=== PATIENT | female | born 1965 | race Caucasian/White ===

== ENCOUNTER 2017-12-28 07:10 | Day surgery (SDC) | payer OTHER ==
--- NOTE | 2017-12-19 16:54 | HP ---
CC: Dr. Mayra Vigil * PREOPERATIVE HISTORY AND PHYSICAL: DATE OF ADMISSION/SURGERY: 12/28/17 This patient is scheduled for same-day surgery admission by Dr. Cloud on Sunday , 12/28/17. DATE OF PREOPERATIVE HISTORY AND PHYSICAL EXAMINATION: 12/19/17. ATTENDING SURGEON: Dr. Brianne Cloud * (dictated by Amina Dodd NP). CHIEF COMPLAINT: Left breast mass. HISTORY OF PRESENT ILLNESS: The patient is a 52-year-old female recently evaluated by Dr. Cloud for abnormal left mammogram. 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 She had not been aware of any breast abnormality and states that she has had mild left breast pain. There is no family history of breast cancer; menarche was at age 10, she is not taking control pills. She has never had a previous breast biopsy and has never had radiation to the chest. Dr. Cloud has examined the patient and there is not a palpable mass of the left breast, so Dr. Cloud explained to the patient that she will need a mammo- guided needle localization excision of the left breast phyllodes tumor. She described the nature of the surgical procedure, the rationale for the procedure, the relevant risks and benefits, and today I reviewed the expected postoperative care and recovery and also provided written instructions for her case packer. The patient has had a chance to ask questions, her case packer has had a chance to ask questions. They state that they understand the information and are satisfied with the answers given to their questions. The patient will sign surgical consent on the day of surgery. PAST MEDICAL HISTORY: Significant for chronic paranoid schizophrenia with multiple prior psychiatric admissions; asthma; obesity; sleep apnea; and anemia. PAST SURGICAL HISTORY: None. MEDICATIONS: 1. Lipitor 10 mg p.o. daily at bedtime. 2. ProAir inhaler 1 puff every 6 hours as needed. 3. Advair 2 puffs b.i.d. 4. QVAR 2 puffs b.i.d. 5. Bisacodyl 5 mg p.o. daily p.r.n. constipation. 6. Benztropine 0.5 mg 1 tablet at bedtime. 7. Haloperidol 5 mg p.o. daily. 8. Paroxetine 30 mg p.o. b.i.d. 9. Castle ER 450 mg p.o. b.i.d. 10. Multivitamins daily. 11. Ranitidine 150 mg b.i.d. ALLERGIES: PENICILLIN and LATEX, both have caused rash. FAMILY HISTORY: No known breast cancer. Mother is . No known history of bleeding disorders or clotting disorders. SOCIAL HISTORY: She lives in [facility], which is an independent living residence for patients with psychiatric history; she has a mechanical press operator that accompanied her to the visit today; she was born in [place] and came to the [place] at age 35. She understands Green[place]ic, but does not communicate well. She is a nonsmoker. Denies the use of substances, and rarely drinks alcohol. REVIEW OF SYSTEMS: Constitutional: No fevers or chills. No excessive fatigue or weight loss. Endocrine: No diabetes or thyroid disease. Hematologic: No easy bruising or bleeding. She does not think she has ever received a blood transfusion. Breasts: Abnormal left breast mass. Respiratory: No chronic cough or dyspnea on exertion. Cardiovascular: No anginal chest pain or palpitations. Gastrointestinal: No nausea, vomiting, diarrhea, GI bleeding; she does have chronic constipation. Genitourinary: No dysuria. She does report heavy menstrual periods, possibly associated with anemia. Musculoskeletal: No lower back pain. Left hip, left knee, and left ankle pain intermittently. Neurologic: No headache or blurred vision. Psychiatric: Cooperative; history of chronic paranoid schizophrenia and depression. General : No known history of deep vein thrombosis or pulmonary embolism. I could not ascertain if she has had previous anesthesia. PHYSICAL EXAMINATION GENERAL SURVEY: The patient is a 52-year-old female, well developed, obese, in no acute distress. VITAL SIGNS: Height 64 inches, weight 220 pounds, body mass index 37.8. Blood pressure 118/82; pulse 86 and regular; respiratory rate 18; temperature 98.5, tympanic. HEENT: Benign. NECK: Supple. No cervical lymphadenopathy. No supraclavicular lymphadenopathy. LUNGS: Breath sounds bilaterally clear and equal. HEART: Regular rate and rhythm. No murmurs or rubs appreciated. BREASTS: Symmetrical. Skin is intact bilaterally. No masses noted in the left breast. No masses noted in the right breast. Nipples are normal bilaterally. There is no nipple discharge. There is no palpable supraclavicular lymphadenopathy and there is bilateral shotty axillary adenopathy. ABDOMEN: Obese. Active bowel sounds. Soft, nontender throughout. No obvious masses, organomegaly, or evidence of ventral hernia. BACK: No CVA tenderness. PELVIC: Exam deferred. RECTAL: Exam deferred. EXTREMITIES: Warm without edema or skin ulceration. NEUROLOGIC: Alert and oriented x3. Steady gait. SKIN: Warm, dry, intact. IMPRESSION: Benign neoplasm of the left breast. PLAN: Same-day surgery admission to Dr. Cloud's service on 12/28/17, for mammo-guided needle localization excision of phyllodes tumor, left breast. DASHA DODD, [employer]ENT [id number]/[facility] #: [id number] CAMILA
[~2017-12-28 07:10] MED LIST: Buffered Lidocaine 0.9% SYRIN* 5 ML/SYR SYRINGE INTRADERM ONE; Famotidine IV* 10 MG/ML 2 ML (20 mg) IV ONE
[2017-12-28] MEDS ORDERED: Clindamycin 900 MG IVPREMIX(* 900 MG/50 ML SDV IV ONE (07:21)
[2017-12-28] MEDS ORDERED: Lidocaine 2.5%/Prilocain 2.5%* 5 GM TUBE ONE (07:21)
[2017-12-28] MEDS ORDERED: Buffered Lidocaine 0.9% SYRIN* 5 ML/SYR SYRINGE ONE (07:21)
[2017-12-28] MEDS ORDERED: Famotidine IV* 10 MG/ML 2 ML (20 mg) ONE (09:40)
[2017-12-28] MEDS ORDERED: fentaNYL* 50 MCG/ML 2 ML VIAL (100 MCG VIAL) ONE ×2 (09:51→10:33)
[2017-12-28] MEDS ORDERED: Midazolam* 1 MG/ML 5 ML VIAL (5 MG) ONE (09:51)
[2017-12-28] MEDS ORDERED: Dexamethasone IV* 4 MG/ML 1 ML (4 MG) ONE (10:13)
[2017-12-28] MEDS ORDERED: Propofol* 10 MG/ML 20 ML BTL IV PUSH ONE (10:13)
[2017-12-28] MEDS ORDERED: Lidocaine 2% PF * 5 ML VIAL ONE (10:13)
[2017-12-28] MEDS ORDERED: Ketorolac INJ* 30 MG/ML 1 ML VIAL ONE (10:13)
[2017-12-28] MEDS ORDERED: DiMENhydriNATE IV* 50 MG/ML VIAL ONE (10:13)
[2017-12-28] MEDS ORDERED: Bupivacaine 0.5% PF 10 ML VIAL INJ ONE (10:22)
[2017-12-28] MEDS ORDERED: HYDROmorphone INJ* 0.5 MG/0.5 ML SYRINGE IV PRN (11:04)
[2017-12-28] MEDS ORDERED: oxyCODONE TAB* 5 MG TAB PO PRN (11:04)
[2017-12-28] MEDS ORDERED: Levalbuterol 0.63MG/3ML NEB* UNIT OF USE INH PRN (11:04)
[2017-12-28] MEDS ORDERED: Naloxone* 0.4 MG/ML 1 ML VIAL IV PRN (11:04)
[2017-12-28] MEDS ORDERED: Acetaminophen TAB* 325 MG PO PRN (11:04)
[2017-12-28] MEDS ORDERED: DiMENhydriNATE IV* 50 MG/ML VIAL IM ONE (11:05)
--- NOTE | 2017-12-28 11:08 | RAD ---
INDICATION: Left breast carcinoma COMPARISON: Mammogram October 15, 2017 TECHNIQUE/FINDINGS: Informed consent was obtained. A routine timeout protocol was utilized. Left breast was prepped in usual fashion and following tracer lidocaine for local anesthesia a 7.5 cm Serna wire was placed from a lateral approach. The wire was placed such that the "break" of the wire was at the microclip. The patient tolerated the procedure well. The specimen radiograph is pending. IMPRESSION: SUCCESSFUL WIRE NEEDLE LOCALIZATION LEFT BREAST. SPECIMEN RADIOGRAPH PENDING ADDENDUM: The specimen radiograph is now available. There are 2 specimens. The first shows the wire, microclip, and multiple calcifications within the specimen. There is also a second specimen which now shows no specific imaging findings.
[2017-12-28 13:21] VITALS: BP 108/86
--- NOTE | 2017-12-31 03:57 | OP ---
CC: Dr Mayra Vigil.* DATE OF OPERATION: 12/28/17 - SDS DATE OF : 65 SURGEON: Dr. Cloud. 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 OPERATIVE PROCEDURE: Needle localization excision of left breast phyllodes tumor. INDICATIONS: Ms. Contreras is a 52-year-old woman with recent mammogram showing an abnormality that showed up on ultrasound and was biopsied and found to be consistent with the phyllodes tumor. This prompted to plan for a wide excision. DESCRIPTION OF PROCEDURE: She was brought to the operating room after having undergone needle localization on the morning of surgery. She was placed on the OR table in the supine position and given general anesthesia. Left breast was prepped and draped in usual sterile fashion technique, cared not to dislodge the localizing wire. After infiltrating with local anesthetic, a curvilinear elliptical incision encompassing the wire was made subcutaneous tissue was divided with electrocautery to excise the mass of tissue from around the tip of the wire. It was noted that at one point the mass of tissue around the wire was partially angulated, so as to expose the apparent mass, so the decision was made after the specimen was out to divide it along this plane and send it as 2 specimens adjacent to each other. First specimen that contained the wire in the mass, the second specimen was more lateral or superficial tissue, which contained skin and subcutaneous tissue. These were both marked in the usual fashion and handed off. Report came back from Radiology after they were evaluated that the first specimen, which contains the wire and the apparent mass was noted to have the microcalcifications that were seen on mammogram as well as the clip and the wire, so it was felt that this was an adequate specimen. Both specimens were then sent to Pathology. Meanwhile, hemostasis was achieved with electrocautery and once this was adequate, additional local was instilled into the wound and closure was accomplished. It should be mentioned that a bleeding vessel that had been encountered was controlled with clips. A 3-0 Vicryl was used to close the subcutaneous tissue and 4-0 Prolene was used to close the skin in a subcuticular fashion. Steri-Strips and the dry sterile dressing were applied. All sponge and instrument counts were correct. The patient tolerated the procedure well and was transferred to Recovery in a stable condition. [id number]/[facility] #: [id number] [facility] HOSPITALSujata
== END 2017-12-28 14:01 | disposition home or self-care (01) ==
LOC: SDS 07:10
PROVIDERS: ATTEND Surgery
DX: D24.2 Benign neoplasm of left breast (principal); J45.909 Unspecified asthma, uncomplicated; G47.33 Obstructive sleep apnea (adult) (pediatric); K21.9 Gastro-esophageal reflux disease without esophagitis; D64.9 Anemia, unspecified; F41.8 Other specified anxiety disorders; F20.0 Paranoid schizophrenia
CPT/HCPCS: 81025; 88307; A9270-GY; J1100; J1240; J1885; J2250; J2704; J3010

== ENCOUNTER 2018-01-20 09:50 | Emergency (ER) | payer OTHER ==
--- OUTSIDE RECORDS SUMMARY | 2018-01-20 09:57 | XMS REPORT ---
:1965 External Reference #:[id number] Author Organization [facility] Address [address] [address] Phone [phone] Care Team Providers Name Role Phone Mayra Vigil MD Primary Care Physician Unavailable Payers Type Date Identification Numbers Payment Provider Subscriber Commercial Policy Number: [id number] [employer] Liliane Contreras PayID: [id number] [address] [address] [place] [address] Problems Date Description Provider Status Onset: 06/20/2013 Constipation Deepali Nevarez M.D. Active Onset: 11/09/2014 Dyssomnia Flora Arreola MD Active Onset: 11/09/2014 Intrinsic asthma without status Flora Arreola MD Active asthmaticus Onset: 11/09/2014 Obesity Flora Arreola MD Active Onset: 2015 Obstructive sleep apnea syndrome Flora Arreola MD Active Onset: 2015 Insomnia Flora Arreola MD Active Onset: 05/09/2016 Schizophrenia Mayra Vigil M.D. Active Onset: 06/01/2016 Changes in skin texture Jass Munguia NP Active Onset: 01/02/2017 Anemia Mayra Vigil M.D. Active Onset: 02/14/2017 Uncomplicated moderate persistent Mayra Vigil M.D. 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 Cigarette Use Never Smoked Cigarettes ETOH Use Never used alcohol Smoking Patient has never smoked Recreational Drug Use Denies Drug Use Daily Caffeine Consumes on average 3 cups of regular coffee per day Exercise Type/Frequency Does not exercise Allergies, Adverse Reactions, Alerts Date Description Reaction Status Severity Comments 06/20/2013 Penicillin Contact dermatitis active 06/20/2013 Latex Contact dermatitis active Medications Medication Date Status Form Strength Qnty SIG Indications Ordering Provider Hydrocodone-Aceta 12/19 Active Tablets 5-325mg 8tabs 1 tab by Amina minophen /2017 mouth B. every 6 [place], hours as [employer] needed for pain Acetaminophen 12/19 Active Tablets 500mg 12tab take 1 Amina Extra Strength /2017 s tablet B. q6h prn [place], pain [employer] Vortex Valved 07/06 Active Device 1unit use as J45.40 Flora Holding Chamber /2017 s mayelin Arreola MD d Lipitor 03/16 Active Tablets 10mg 90tab take one Mayra s tablet by Musa mouth M.DManoj every night at bedtime Proair HFA 05/10 Active Aerosol 108(90Bas 8.500 1 puff Lfora e) gm every 6 MD Maxwell mcg/Act hours as needed Advair HFA 05/10 Active Aerosol 115-21mcg 24uni 2 puff Flora /2015 /Act ts twice a MD Maxwell day Qvar 05/10 Active Aerosol 40mcg/Act 2unit 2 puff Flora s twice a MD Maxwell day Bisacodyl Ec 09/[address] 5mg 30tab take one Mayra s tablet by Musa mouth M.DManoj once daily for constipat ion as needed Benztropine 02/18 Active Tablets 0.5mg take 1 Unknown Mesylate tablet by mouth at bed time Senna-Time 07/10 Active Tablets 8.6mg 30tab take one K59.00 Mayra s tablet by Musa mouth M.DManoj once daily as needed fo rconstipa tion Haloperidol Active Tablets 5mg 90tab 1 po once Unknown 0000 s daily Paroxetine HCL Active Tablets 30mg 90tab 1 po bid s Polyethylene Active Packet 3350NF 30uni mix 17G Unknown Glycol 335 ts in liquid and drink dailt [place] Carbonate Active Tablets ER 450mg 1 by Unknown ER /0000 mouth twice a day Ketoconazole Active Shampoo 2% shampoo three times a week for seborrhei c dermatiti s on scalp Multi-Vitamins Active Tablets 30tab 1 by Wendie s mouth Cotton, every day M.D. Ranitidine HCL Active Tablets 150mg 60tab take one Jg E. s tablet by Yuridia, mouth M.D. twice a day Prednisone 06/04 Hx Tablets 10mg qs take 4 J45.41 tab daily Vigil, - X 3 days M.D. 06/14 then 3 tab daily x 3 days then 2 tab daily x 2 days and then 1 tab daily x 2 days Azithromycin 06/04 Hx Tablets 250mg 6tabs take 2 J45.41 tab on Vigil, day 1 M.D. then 1 tab daily x 4 days Prednisone 01/02 Hx Tablets 10mg QS take 3 J45.41 tab daily Vigil, - x 2 days M.D. 02/13 then tab daily x 3 days and then 1 tab daily x 3 days Advair HFA 05/19 Hx Aerosol 45-21mcg/ 2unit 1 puff J45.40 Act s twice a Silas, - day DNP, RN, 03/29 [facility]- Clarithromycin 05/14 Hx Tablets 500mg 20tab 1 tab po J01.90 Deepali s 2x per Roque - day M.D. 08/19 Fluticasone 05/14 Hx Suspension 50mcg/Act 1unit 2 sprays J01.90 Deepali Propionate s each Roque - nostril M.D. 03/27 Humidifier 05/14 Hx Misc 1.25Gal 1unit as needed J01.90 Deepali s in Nevarez, - bedroom M.D. 03/27 Methylprednisolon 05/14 Hx Tablets 4mg 1pack as J45.901 Deepali gaston () directed Roque - M.D. 08/12 Qvar 11/09 Hx Aerosol 40mcg/Act 2unit 2 puff J45.20 Flora s twice a MD Maxwell - day 04/23 Azithromycin 10/15 Hx Tablets 250mg 6tabs 2 tab by 466.0 Deepali mouth day Roque, - 1 then 1 M.D. 10/29 tab by mouth day 2-5 Methylprednisolon 10/15 Hx Tablets 4mg 1pack as 466.0 Deepali feldman () directed Roque, - M.D. 10/29 Acetaminophen 10/15 Hx Capsules 500mg 60cap 1 tab by 466.0 Deepali /2015 s mouth 2x Roque, - per day M.D. 03/27 as needed for pain Sudogest 12 Hour 09/22 Hx Tablets ER 120mg 60tab take one 473.0 12HR s tablet by Roque, - mouth M.D. 08/19 every hours as needed for congestio n Methylprednisolon 09/22 Hx Tablets 4mg 1pack as 473.0 Deepali feldman () directed Roque, - M.D. 10/02 Proair HFA 09/22 Hx Aerosol 108(90Bas 1unit 2 puffs J45.20 e) s by mouth Roque, - mcg/Act every 4 M.D. 03/27 hours as needed Inspirease Drug 09/22 Hx Misc 1unit use as J45.20 Deepali Delivery System /2014 s directed Roque, - with M.D. 03/27 inhalers /2015 Azithromycin 09/22 Hx Tablets 250mg 6tabs 2 tab by 473.0 Deepali /2015 mouth day Roque, - 1 then 1 M.D. 10/02 tab by mouth day 2-5 Albuterol Sulfate 09/22 Hx Nebulizer (2.5mg/3M 1box 1 vial J45.20 L) 0.083% every 4 Roque, - hour as M.D. 03/27 needed /2015 ans every 2 hour if needed Nebulizer 09/22 Hx Kit QS use every J45.20 Deepali Kit/Tubing/Mouthp four juanito Nevarez - hours MDeborah 03/27 every day. May use every two hours if needed. Doxycycline 08/19 Hx Capsules 100mg 14cap one 461.8 Jefe Hyclate s tablet SERENA Bales - twice 09/22 daily for 7 days. Fluticasone 08/19 Hx Suspension 50mcg/Act 16gm 2 sprays 386.10 Jefe Propionate each SERENA Bales - nostril 09/22 qd for two weeks Meclizine HCL 08/19 Hx Tablets 25mg 20tab Take One 386.10 Jefe s Tablet By SERENA Bales - Mouth 03/27 Every Hours as Needed For Dizziness Lipitor 06/02 Hx Tablets 10mg 90tab take one Mayra /2014 s tablet by Musa - mouth M.DManoj 02/13 night at bedtime Mucinex 04/17 Hx Tablets ER 600mg 60tab 1 tab 12HR s twice a Roque - day by Noelle 03/27 mouth needed Omeprazole 11/[address] 40mg 30cap take one 789.09 s capsule Roque - by mouth M.DManoj 03/27 daily Citrate Of 07/10 Hx Solution 1bott take 1 564.00 Deepali margaux Nevarez - today MDeborah 07/07 Fleet Enema 07/10 Hx Enema 7-19GM 2unit 1 as 564.00 8ML s directed Garrett Nevarez M.D. 12/30 Citrate Of 06/20 Hx Solution 1bott take 06/26 564.00 Deepali margaux Nevarez, - today and Noelle 07/10 bottle tomorrow Colace 06/20 Hx Capsules 100mg 60cap 1 po qd 564.00 Deepali s Garrett Nevarez M.D. 11/14 Docqlace 06/20 Hx Capsules 100mg 30cap take one 564.00 s capsule Roque, - by mouth M.D. 12/30 one time daily Bisacodyl Hx Tablets DR 5mg 30tab 1 by Deepali Laxative / s mouth Roque, - every day M.D. 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 03/27 for nausea Linzess Hx Capsules 145mcg 30cap take one Deepali s capsule Roque, - by mouth M.D. 03/27 daily Meloxicam Hx Tablets 7.5mg 30tab 1 by Deepali / s mouth Roque, - every day M.D. 03/27 Zantac Hx Tablets 150mg 60tab 1 tab by Mayra / s mouth Musa, - twice M.D. 01/012017 Immunizations CPT Code Status Date Vaccine Lot # [id number] Given 12/18/2017 Tdap - Tetanus/Diptheria/Acellular Pertussis [id number] Given 12/18/2017 Pneumococcal Conjugate Vaccine 13 Valent For [id number] Intramuscular Use 01134 Given 07/07/2014 Flu Vaccine Split Virus Preservative Free For Indiv [id number] 3Yr Older Vital Signs Date Vital Result Comment 01/09/2018 Heart Rate 72 /min BP Systolic 124 mmHg BP Diastolic 82 mmHg Respiratory Rate 18 /min Body Temperature 97.3 F 12/19/2017 Height 64 inches 5'4" Weight 214.00 lb Heart Rate 86 /min BP Systolic 118 mmHg BP Diastolic 82 mmHg Respiratory Rate 18 /min Body Temperature 98.5 F BMI (Body Mass Index) 36.7 kg/m2 12/18/2017 Height 64 inches 5'4" Weight 206.00 lb Heart Rate 97 /min BP Systolic Sitting 122 mmHg BP Diastolic Sitting 80 mmHg O2 % BldC Oximetry 98 % BMI (Body Mass Index) 35.4 kg/m2 12/05/2017 Height 64 inches 5'4" Weight 220.00 lb Heart Rate 72 /min BP Systolic 120 mmHg BP Diastolic 78 mmHg Respiratory Rate 18 /min Body Temperature 97.7 F BMI (Body Mass Index) 37.8 kg/m2 06/04/2017 Weight 219.12 lb Heart Rate 85 /min BP Systolic Sitting 138 mmHg BP Diastolic Sitting 98 mmHg Body Temperature 97.1 F O2 % BldC Oximetry 94 % 02/14/2017 Height 64 inches 5'4" Weight 214.00 lb Heart Rate 108 /min BP Systolic Sitting 130 mmHg BP Diastolic Sitting 80 mmHg Body Temperature 97.8 F O2 % BldC Oximetry 98 % BMI (Body Mass Index) 36.7 kg/m2 01/02/2017 Height 64 inches 5'4" Weight 215.00 lb Heart Rate 96 /min BP Systolic 120 mmHg BP Diastolic 66 mmHg Body Temperature 97.9 F O2 % BldC Oximetry 98 % BMI (Body Mass Index) 36.9 kg/m2 06/27/2016 Height 64 inches 5'4" Weight 214.00 lb Heart Rate 107 /min BP Systolic Sitting 118 mmHg BP Diastolic Sitting 68 mmHg Respiratory Rate 16 /min O2 % BldC Oximetry 97 % BMI (Body Mass Index) 36.7 kg/m2 06/01/2016 Height 64 inches 5'4" Weight 214.50 lb Heart Rate 94 /min BP Systolic Sitting 100 mmHg BP Diastolic Sitting 74 mmHg Body Temperature 96.8 F O2 % BldC Oximetry 98 % BMI (Body Mass Index) 36.8 kg/m2 05/23/2016 Weight 211.00 lb Heart Rate 109 /min BP Systolic Sitting 114 mmHg BP Diastolic Sitting 86 mmHg Body Temperature 98.3 F O2 % BldC Oximetry 95 % 12/13/2015 Height 64 inches 5'4" Weight 208.00 lb Heart Rate 104 /min BP Systolic 118 mmHg BP Diastolic 72 mmHg Respiratory Rate 14 /min O2 % BldC Oximetry 98 % BMI (Body Mass Index) 35.7 kg/m2 09/02/2015 Height 64 inches 5'4" Weight 208.00 lb Heart Rate 108 /min BP Systolic Sitting 112 mmHg BP Diastolic Sitting 76 mmHg Body Temperature 98.3 F O2 % BldC Oximetry 96 % BMI (Body Mass Index) 35.7 kg/m2 08/20/2015 Height 64 inches 5'4" Weight 209.00 lb Heart Rate 110 /min BP Systolic 118 mmHg BP Diastolic 74 mmHg O2 % BldC Oximetry 97 % BMI (Body Mass Index) 35.9 kg/m2 05/19/2015 Height 64 inches 5'4" Heart Rate 104 /min BP Systolic 110 mmHg BP Diastolic 64 mmHg Respiratory Rate 14 /min O2 % BldC Oximetry 97 % 05/14/2015 Height 64 inches 5'4" Weight 193.00 lb Heart Rate 101 /min BP Systolic 120 mmHg BP Diastolic 60 mmHg Body Temperature 98.4 F O2 % BldC Oximetry 98 % BMI (Body Mass Index) 33.1 kg/m2 04/23/2015 Height 64 inches 5'4" Weight 195.00 lb Heart Rate 101 /min BP Systolic Standing 122 mmHg BP Diastolic Standing 58 mmHg Respiratory Rate 16 /min O2 % BldC Oximetry 98 % BMI (Body Mass Index) 33.5 kg/m2 04/02/2015 Height 64 inches 5'4" Weight 199.00 lb BP Systolic Sitting 122 mmHg BP Diastolic Sitting 80 mmHg Respiratory Rate 14 /min Body Temperature 98.6 F O2 % BldC Oximetry 98 % BMI (Body Mass Index) 34.2 kg/m2 2015 Heart Rate 100 /min BP Systolic 124 mmHg BP Diastolic 86 mmHg Respiratory Rate 14 /min O2 % BldC Oximetry 98 % 02/09/2015 Weight 191.00 lb Heart Rate 98 /min BP Systolic Sitting 122 mmHg BP Diastolic Sitting 80 mmHg Body Temperature 97.4 F O2 % BldC Oximetry 98 % 01/21/2015 Height 64 inches 5'4" Weight 193.25 lb Heart Rate 111 /min BP Systolic Sitting 116 mmHg 104/64 sitting p 101 BP Diastolic Sitting 78 mmHg 104/64 sitting p 101 BP Systolic Standing 98 mmHg pulse 120 standing up BP Diastolic Standing 64 mmHg pulse 120 standing up BP Systolic Lying Down 110 mmHg pulse 71 laying down BP Diastolic Lying Down 70 mmHg pulse 71 laying down Respiratory Rate 16 /min Pain Level 5 O2 % BldC Oximetry 98 % BMI (Body Mass Index) 33.2 kg/m2 01/11/2015 Height 64 inches 5'4" Weight 196.00 lb Heart Rate 100 /min BP Systolic 112 mmHg BP Diastolic 76 mmHg Respiratory Rate 14 /min O2 % BldC Oximetry 98 % BMI (Body Mass Index) 33.6 kg/m2 12/31/2014 Height 64 inches 5'4" Weight 196.00 lb Heart Rate 102 /min BP Systolic Sitting 110 mmHg BP Diastolic Sitting 68 mmHg Body Temperature 97.9 F O2 % BldC Oximetry 96 % BMI (Body Mass Index) 33.6 kg/m2 11/09/2014 Height 64 inches 5'4" Weight 201.50 lb Heart Rate 104 /min BP Systolic Sitting 130 mmHg BP Diastolic Sitting 66 mmHg Respiratory Rate 20 /min Body Temperature 96.4 F O2 % BldC Oximetry 98 % BMI (Body Mass Index) 34.6 kg/m2 Neck Circumference in inches 16 10/29/2014 Weight 194.00 lb Heart Rate 99 /min BP Systolic Sitting 110 mmHg BP Diastolic Sitting 72 mmHg Body Temperature 97.8 F O2 % BldC Oximetry 98 % 10/15/2014 Height 63 inches 5'3" Weight 193.00 lb Heart Rate 98 /min BP Systolic Sitting 124 mmHg BP Diastolic Sitting 76 mmHg Body Temperature 98.7 F O2 % BldC Oximetry 98 % BMI (Body Mass Index) 34.2 kg/m2 10/02/2014 Height 63 inches 5'3" Weight 194.00 lb Heart Rate 84 /min BP Systolic Sitting 122 mmHg BP Diastolic Sitting 76 mmHg Body Temperature 98.7 F O2 % BldC Oximetry 98 % BMI (Body Mass Index) 34.4 kg/m2 09/22/2014 Weight 191.00 lb Heart Rate 84 /min BP Systolic Sitting 112 mmHg BP Diastolic Sitting 88 mmHg Respiratory Rate 16 /min Body Temperature 97.0 F O2 % BldC Oximetry 94 % 08/19/2014 Height 63 inches 5'3" Weight 195.25 lb Heart Rate 100 /min BP Systolic 110 mmHg BP Diastolic 70 mmHg Body Temperature 97.9 F BMI (Body Mass Index) 34.6 kg/m2 07/30/2014 Height 63 inches 5'3" Weight 197.75 lb Heart Rate 110 /min BP Systolic Sitting 104 mmHg BP Diastolic Sitting 68 mmHg Body Temperature 98.0 F O2 % BldC Oximetry 98 % BMI (Body Mass Index) 35.0 kg/m2 07/16/2014 Height 63 inches 5'3" Weight 198.25 lb Heart Rate 96 /min BP Systolic Sitting 108 mmHg BP Diastolic Sitting 76 mmHg BMI (Body Mass Index) 35.1 kg/m2 07/07/2014 Height 63 inches 5'3" Weight 195.25 lb Heart Rate 93 /min BP Systolic Sitting 110 mmHg BP Diastolic Sitting 72 mmHg Body Temperature 97.2 F O2 % BldC Oximetry 96 % BMI (Body Mass Index) 34.6 kg/m2 03/23/2014 Weight 193.00 lb Heart Rate 88 /min BP Systolic Sitting 110 mmHg BP Diastolic Sitting 66 mmHg Body Temperature 98.7 F 11/14/2013 Weight 198.00 lb Heart Rate 110 /min BP Systolic Sitting 110 mmHg BP Diastolic Sitting 60 mmHg Body Temperature 98.6 F 07/18/2013 Weight 204.00 lb Heart Rate 113 /min BP Systolic Sitting 90 mmHg BP Diastolic Sitting 60 mmHg Body Temperature 98.8 F 07/10/2013 Weight 209.00 lb Heart Rate 90 /min BP Systolic Sitting 111 mmHg BP Diastolic Sitting 72 mmHg Body Temperature 98.8 F 06/20/2013 Height 6425 inches 5'4" Weight 207.00 lb Heart Rate 96 /min BP Systolic Sitting 117 mmHg BP Diastolic Sitting 81 mmHg Body Temperature 98.7 F BMI (Body Mass Index) 35.5 kg/m2 Results Test Date Test Result H/L Range Note Laboratory test 12/28/2017 Surgical Pathology SEE RESULT BELOW 1 finding Laboratory test 10/15/2017 Surgical Pathology SEE RESULT BELOW 2, 3 finding Comp Metabolic Panel 06/05/2017 Sodium 135 mmol/L 133-145 Potassium 4.3 mmol/L 3.5-5.0 Chloride 104 mmol/L 101-111 Co2 Carbon Dioxide 26 mmol/L 22-32 Anion Gap 5 mmol/L 2-11 Glucose 105 mg/dL High 70-100 Blood Urea Nitrogen 13 mg/dL 6-24 Creatinine 0.74 mg/dL 0.51-0.95 BUN/Creatinine Ratio 17.6 8-20 Calcium 9.2 mg/dL 8.6-10.3 Total Protein 6.9 g/dL 6.4-8.9 Albumin 4.1 g/dL 3.2-5.2 Globulin 2.8 g/dL 2-4 Albumin/Globulin Ratio 1.5 1-3 Total Bilirubin 0.40 mg/dL 0.2-1.0 Alkaline Phosphatase 64 U/L 34-104 Alt 19 U/L 7-52 Ast 18 U/L 13-39 Egfr Non- 82.4 >60 Egfr 106.0 >60 4 HIV 1/2 AB Evaluation 06/05/2017 HIV 1 2 Antibody Nonreactive Nonreactive 5 Laboratory test finding 06/05/2017 TSH (Thyroid Stim 3.01 mcIU/mL 0.34- 5.60 6 Horm) Protein Electrophoresis 06/05/2017 Total Protein(Pep) 7.2 g/dL 6.3 - 7.9 Albumin 3.5 g/dL 3.4-4.7 Alpha-1 Globulin 0.2 g/dL 0.1-0.3 Alpha-2 Globulin 1.0 g/dL 0.6-1.0 Beta Globulin 1.0 g/dL 0.7-1.2 Gamma Globulin 1.4 g/dL 0.6-1.6 Albumin/Globulin Ratio 0.96 Impression See Comment 7 Laboratory test finding 06/05/2017 Ferritin 18.4 ng/mL 11-307 8 Vitamin B12 621 pg/mL 180-914 9 LDH 145 U/L 140-271 10 CBC Auto Diff 06/05/2017 White Blood Count 5.9 10^3/uL 3.5-10.8 Red Blood Count 3.77 10^6/uL Low 4.0-5.4 Hemoglobin 11.3 g/dL Low 12.0-16.0 Hematocrit 35 % 35-47 Mean Corpuscular Volume 92 fL 80-97 Mean Corpuscular Hemoglobin 30 pg 27-31 Mean Corpuscular HGB Conc 33 g/dL 31-36 Red Cell Distribution Width 14 % 10.5-15 Platelet Count 187 10^3/uL 150-450 Mean Platelet Volume 10 um3 7.4-10.4 Abs Neutrophils 3.1 10^3/uL 1.5-7.7 Abs Lymphocytes 1.7 10^3/uL 1.0-4.8 Abs Monocytes 0.5 10^3/uL 0-0.8 Abs Eosinophils 0.5 10^3/uL 0-0.6 Abs Basophils 0 10^3/uL 0-0.2 Abs Nucleated RBC 0 10^3/uL Granulocyte % 53.3 % 38-83 Lymphocyte % 28.1 % 25-47 Monocyte % 9.0 % 1-9 Eosinophil % 9.1 % High 0-6 Basophil % 0.5 % 0-2 Nucleated Red Blood Cells % 0.1 CBC Auto Diff 01/06/2016 White Blood Count 6.4 10^3/uL 3.5-10.8 Red Blood Count 4.19 10^6/uL 4.0-5.4 Hemoglobin 9.9 g/dL Low 12.0-16.0 Hematocrit 31 % Low 35-47 Mean Corpuscular Volume 75 fL Low 80-97 Mean Corpuscular Hemoglobin 24 pg Low 27-31 Mean Corpuscular HGB Conc 32 g/dL 31-36 Red Cell Distribution Width 17 % High 10.5-15 Platelet Count 235 10^3/uL 150-450 Mean Platelet Volume 9 um3 7.4-10.4 Abs Neutrophils 4.1 10^3/uL 1.5-7.7 Abs Lymphocytes 1.5 10^3/uL 1.0-4.8 Abs Monocytes 0.6 10^3/uL 0-0.8 Abs Eosinophils 0.1 10^3/uL 0-0.6 Abs Basophils 0 10^3/uL 0-0.2 Abs Nucleated RBC 0 10^3/uL Granulocyte % 64.6 % 38-83 Lymphocyte % 24.2 % Low 25-47 Monocyte % 8.8 % 1-9 Eosinophil % 2.0 % 0-6 Basophil % 0.4 % 0-2 Nucleated Red Blood Cells % 0.1 Comp Metabolic Panel 01/06/2016 Sodium 135 mmol/L 133-145 Potassium 4.3 mmol/L 3.5-5.0 Chloride 102 mmol/L 101-111 Co2 Carbon Dioxide 25 mmol/L 22-32 Anion Gap 8 mmol/L 2-11 Glucose 92 mg/dL 70-100 Blood Urea Nitrogen 14 mg/dL 6-24 Creatinine 0.79 mg/dL 0.51-0.95 BUN/Creatinine Ratio 17.7 8-20 Calcium 9.4 mg/dL 8.6-10.3 Total Protein 7.9 g/dL 6.4-8.9 Albumin 4.2 g/dL 3.2-5.2 Globulin 3.7 g/dL 2-4 Albumin/Globulin Ratio 1.1 1-3 Total Bilirubin 0.30 mg/dL 0.2-1.0 Alkaline Phosphatase 68 U/L 34-104 Alt 18 U/L 7-52 Ast 19 U/L 13-39 Egfr Non- 77.0 >60 Egfr 99.1 >60 11 Laboratory test finding 01/06/2016 Creatine Kinase(CK) 187 U/L 10-223 Acetaminophen < 15 g/mL 12 Alcohol < 10 mg/dL <10 Salicylate < 2.50 mg/dL <30 TSH (Thyroid Stim Horm) 1.68 mcIU/mL 0.34-5.60 Lipid Profile (Trig/Chol/HDL) 10/06/2015 Triglycerides 124 mg/dL 13, 14 Cholesterol 148 mg/dL 13, 15 HDL Cholesterol 44.6 mg/dL 13, 16 LDL Cholesterol 79 mg/dL 13, 17 Comp Metabolic Panel 10/06/2015 Sodium 137 mmol/L 133-145 13 Potassium 4.5 mmol/L 3.5-5.0 13 Chloride 102 mmol/L 101-111 13 Co2 Carbon Dioxide 27 mmol/L 22-32 13 Anion Gap 8 mmol/L 2-11 13 Glucose 103 mg/dL High 70-100 13 Blood Urea Nitrogen 17 mg/dL 6-24 13 Creatinine 0.85 mg/dL 0.51-0.95 13 BUN/Creatinine Ratio 20.0 8-20 13 Calcium 9.6 mg/dL 8.6-10.3 13 Total Protein 7.6 g/dL 6.4-8.9 13 Albumin 4.3 g/dL 3.2-5.2 13 Globulin 3.3 g/dL 2-4 13 Albumin/Globulin Ratio 1.3 1-3 13 Total Bilirubin 0.30 mg/dL 0.2-1.0 13 Alkaline Phosphatase 70 U/L 34-104 13 Alt 17 U/L 7-52 13 Ast 20 U/L 13-39 13 Egfr Non- 70.8 >60 13 Egfr 91.0 >60 13, 18 Laboratory test 10/06/2015 TSH (Thyroid Stim 1.79 ?IU/mL 0.34-5.60 13, 19 finding Horm) Order 05/14/2015 Nebulizer Treatment lot#[id number] Ua Routine 04/02/2015 Ua Specific [place] 1.005 Ua PH 5 Ua Color yellow Ua Appera clear Ua WBC trace Ua Protein neg Ua Glucose neg Ua Ketones small Ua Bilirubin small Ua Urobilinogen normal Ua Nitrite neg Ua Occult Blood large Laboratory test 04/02/2015 Urine Culture And SEE RESULT BELOW 20 finding Sensitivities Comp Metabolic Panel 02/09/2015 Sodium 137 mmol/L 133-145 Potassium 4.4 mmol/L 3.5-5.0 Chloride 101 mmol/L 101-111 Co2 Carbon Dioxide 30 mmol/L 22-32 Anion Gap 6 mmol/L 2-11 Glucose 98 mg/dL 70-100 Blood Urea Nitrogen 15 mg/dL 6-24 Creatinine 0.76 mg/dL 0.51-0.95 BUN/Creatinine Ratio 19.7 8-20 Calcium 9.7 mg/dL 8.6-10.3 Total Protein 7.2 g/dL 6.4-8.9 Albumin 4.2 g/dL 3.2-5.2 Globulin 3.0 g/dL 2-4 Albumin/Globulin Ratio 1.4 1-3 Total Bilirubin 0.20 mg/dL 0.2-1.0 Alkaline Phosphatase 73 U/L 34-104 Alt 16 U/L 7-52 Ast 15 U/L 13-39 Egfr Non- 80.9 >60 Egfr 104.0 >60 21 Laboratory test finding 12/30/2014 Lactic Acid 0.8 mmol/L 0.5-2.2 Laboratory test finding 12/29/2014 Serum Negative Negative CBC Auto Diff 10/02/2014 White Blood Count 6.2 10^3/uL 4.8-10.8 Red Blood Count 4.19 10^6/uL 4.0-5.4 Hemoglobin 12.3 g/dL 12.0-16.0 Hematocrit 38 % 35-47 Mean Corpuscular Volume 89 fL 80-97 Mean Corpuscular Hemoglobin 29 pg 27-31 Mean Corpuscular HGB Conc 33 g/dL 31-36 Red Cell Distribution Width 14 % 10.5-15 Platelet Count 214 10^3/uL 150-450 Mean Platelet Volume 10 um3 7.4-10.4 Abs Neutrophils 3.2 10^3/uL 1.5-7.7 Abs Lymphocytes 2.0 10^3/uL 1.0-4.8 Abs Monocytes 0.5 10^3/uL 0-0.8 Abs Eosinophils 0.5 10^3/uL 0-0.6 Abs Basophils 0 10^3/uL 0-0.2 Abs Nucleated RBC 0.01 10^3/uL Granulocyte % 51.5 % 38-83 Lymphocyte % 31.8 % 25-47 Monocyte % 7.4 % 1-9 Eosinophil % 8.7 % High 0-6 Basophil % 0.6 % 0-2 Nucleated Red Blood Cells % 0.1 Ua Routine 07/30/2014 Ua Specific [place] 1.005 Ua PH 6 Ua Color yellow Ua Appera cloudy Ua WBC trace Ua Protein neg Ua Glucose neg Ua Ketones neg Ua Bilirubin neg Ua Urobilinogen normal Ua Nitrite neg Ua Occult Blood neg Urine Culture And Sensitivities 07/30/2014 Urine Culture (SEE NOTE) 22 Laboratory test finding 07/24/2014 Lipase 19 U/L 11.0-82.0 Comp Metabolic Panel 07/24/2014 Sodium 134 mmol/L 133-145 Potassium 5.0 mmol/L 3.5-5.0 Chloride 101 mmol/L 101-111 Co2 Carbon Dioxide 28 mmol/L 22-32 Anion Gap 5 mmol/L 2-11 Glucose 83 mg/dL 70-100 Blood Urea Nitrogen 19 mg/dL 6-24 Creatinine 0.89 mg/dL 0.51-0.95 BUN/Creatinine Ratio 21.3 High 8-20 Calcium 9.0 mg/dL 8.6-10.3 Total Protein 7.1 g/dL 6.4-8.9 Albumin 4.3 g/dL 3.2-5.2 Globulin 2.8 g/dL 2-4 Albumin/Globulin Ratio 1.5 1-3 Total Bilirubin 0.30 mg/dL 0.2-1.0 Alkaline Phosphatase 63 U/L 34-104 Alt 14 U/L 7-52 Ast 15 U/L 13-39 Egfr Non- 67.4 >60 Egfr 86.7 >60 23 Lipid Profile (Trig/Chol/HDL) 07/07/2014 Triglycerides 180 mg/dL 13, 24 Cholesterol 139 mg/dL 13, 25 HDL Cholesterol 33.9 mg/dL 13, 26 LDL Cholesterol 69 mg/dL 13, 27 Lipid Profile (Trig/Chol/HDL) 05/28/2014 Triglycerides 218 mg/dL 28, 29 Cholesterol 248 mg/dL 28, 30 HDL Cholesterol 43.9 mg/dL 28, 31 LDL Cholesterol 161 mg/dL 28, 32 Laboratory test 05/28/2014 Glucose 87 mg/dL 70-100 28, 33 finding Laboratory test 07/25/2013 Hemoglobin A1c 5.1 5-7 finding Laboratory test 07/18/2013 TSH (Thyroid 0.80 miu/mL 0.34-5.60 finding Stimulating Horm) Comp Metabolic Panel 07/18/2013 Sodium 132 mmol/L Low 133-145 Potassium 4.1 mmol/L 3.5-5.0 Chloride 98 mmol/L Low 101-111 Co2 Carbon Dioxide 24.0 mmol/L 22-32 Anion Gap 10.0 mmol/L 2-11 Glucose 121 mg/dL High 70-100 Blood Urea Nitrogen 14 mg/dL 6-24 Creatinine 0.70 mg/dL 0.50-1.40 BUN/Creatinine Ratio 20.0 8-20 Calcium 9.7 mg/dL 8.1-9.9 Total Protein 7.6 g/dL 6.2-8.1 Albumin 4.0 g/dL 3.6-5.4 Globulin 3.6 g/dL 2-4 Albumin/Globulin Ratio 1.1 1-3 Total Bilirubin 0.6 mg/dL 0.4-1.5 Alkaline Phosphatase 68 U/L 30-110 Alt 19 U/L 14-54 Ast 24 U/L 12-42 Egfr Non- 89.3 >60 Egfr 114.9 >60 34 Ua Routine 06/20/2013 Ua Specific [place] 1.010 Ua PH 5.0 Ua Color yellow Ua Appera cloudy Ua WBC neg Ua Protein trace Ua Glucose neg Ua Ketones neg Ua Bilirubin small Ua Urobilinogen neg Ua Nitrite neg Ua Occult Blood neg 1 SEE RESULT BELOW Name: LILIANE CONTRERAS : [address]: Brianne Cloud MD Acct: [id number] Unit: [id number] AGE: 52 Location: [facility] Re12/28/17 SEX: F Status: DEP [facility] SPEC: [id number] KVNG: 12/28/17- SUBM DR: Brianne Cloud MD REQ: [id number] RECD: 12/28/175 STATUS: SOUT _ ORDERED: LEVEL 5/2 FINAL DIAGNOSIS 1. 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 -- Surgical margins of resection are clear by at least 3 mm. -- Proliferative fibrocystic change with associated microcalcifications. 2. Breast, left, additional tissue lateral to first specimen, excision: -- Benign breast tissue and skin. -- No phyllodes tumor identified. Comment: Dr. Gallegos has reviewed this case and concurs. PRE-OPERATIVE DIAGNOSIS Benign neoplasm of left breast; 2) medial aspect is lateral to first specimen GROSS DESCRIPTION 1. The specimen is received fresh labeled, Left Breast Mass, and consists of an 8.3 x 5.4 x 2.9 cm yellow pink ovoid portion of fibrofatty soft tissue with three attached sutures which are designated as follows: long-lateral, short-superior and medium- medial. There is a needle localization wire entering the specimen from the inferior lateral surface. There is a 2.5 by up to 2.3 x 1.5 cm ill-defined shelley-pink focally indurated to friable and cystic lesion within the inferior specimen associated with the wire which abuts the inferior lateral margin. The remaining cut surface consists predominantly of yellow lobulated adipose tissue with a small amount of interspersed shelley-pink fibrous tissue. The specimen is inked as follows: lateral half-blue, medial half-green and deep-black, serially sectioned from superior to inferior and energy conservation representative sections are submitted in cassettes A through M CONTINUED ON NEXT PAGE DEPARTMENT OF PATHOLOGY, [address] [place] [address] Melvin Ferrari M.D. Director [facility] # [id number] RUN DATE: 01/01/18 [facility] LAB LIVE PAGE 2 Patient: LILIANE CONTRERAS [id number] (Continued) GROSS DESCRIPTION (Continued) GROSS DESCRIPTION (Continued) to include lesion in cassettes G through M including section associated with wire in cassette H. 2. The specimen is received fresh labeled, Tissue Lateral to First Specimen , and consists of a 7.0 x 5.7 x 1.9 cm yellow pink ovoid portion of fibrofatty soft tissue with three attached sutures which are designated as follows: long-lateral, short- superior and medium-medial. The specimen is partially surfaced by a 3.0 x 0.8 cm shelley- pink wrinkled skin ellipse on the lateral margin. The cut surface consists predominantly of yellow lobulated adipose tissue with scant interspersed shelley-pink fibrous tissue. A discrete lesion is not identified. The specimen is inked as follows: lateral half-blue, medial half -green and deep-black, serially sectioned from superior to inferior and energy conservation representative sections are submitted in cassettes A through G. Signed by and Reported on: Melvin Ferrari MD 04/11 1642 END OF REPORT DEPARTMENT OF PATHOLOGY, [address] [place] [address] Melvin Ferrari M.D. Director [facility] # [id number] 2 [id number] SEE RESULT BELOW Name: LILIANE CONTRERAS : [address]: Mayra Vigil MD Acct: [id number] Unit: [id number] AGE: 52 Location: [facility] Re10/15/17 SEX: F Status: REG REF SPEC: [id number] KVNG: 10/15/17-1308 [facility] DR: Jose Thompson MD REQ: [id number] RECD: 10/15/17 STATUS: NELSON FOSTER DR: Mayra Vigil MD _ ORDERED: LEVEL 4 COMMENTS: [id number] FINAL DIAGNOSIS Breast, left, 2:30, 8 cm from nipple, core biopsy: -- Benign Phyllodes tumor. -- No evidence of invasive or in situ carcinoma. COMMENT: Clinical and radiologic correlation is recommended. PRE-OPERATIVE DIAGNOSIS Left breast solid mass at 2:30 8 cm from nipple, 0.8 x 0.7 x 1.0 cm GROSS DESCRIPTION The specimen is received in formalin labeled, Left Breast Core Biopsies, and consists of a 1.4 x 0.8 x 0.3 cm aggregate of white-pink fibrofatty irregular soft tissue fragments, which are filtered and entirely submitted in one cassette. Signed (signature on file) Madison Gallegos MD [id number] END OF REPORT DEPARTMENT OF PATHOLOGY, [address] [place] [address] Melvin Ferrari M.D. Director [facility] # [id number] 4 Because ethnic data is not always readily available, this report includes an eGFR for both -Americans and non- Americans. The National Kidney Disease Education Program (NKDEP) does not endorse the use of the MDRD equation for patients that are not between the ages of 18 and 70, are , have extremes of body size, muscle mass, or nutritional status, or are non- or non-. According to the National Kidney Foundation, irrespective of diagnosis, the stage of the disease is based on the level of kidney function: Stage Description GFR(mL/min/1.73 m(2)) 1 Kidney damage with normal or decreased GFR 90 2 Kidney damage with mild decrease in GFR 60-89 3 Moderate decrease in GFR 30-59 4 Severe decrease in GFR 15-29 5 Kidney failure <15 (or dialysis) 5 It is recognized that currently available assays for the detection of antibodies to HIV-1 and/or HIV-2 may not detect all infected individuals. HIV antibodies may be undetectable in some stages of the infection and in some clinical conditions. The performance of this assay has not been established for populations of infants or children. Assayed by Chemiluminescence Microparticle Immunoassay on the Siemens Advia Centaur CP. Values obtained with different methods or kits cannot be used interchangeably.The diagnostic specificity of the ADVIA Centaur 1/O/2 Enhanced assay in the low risk population was 99.90% (6052/6058) with a 95% confidence interval of 99.78 to 99.96%. 6 FASTING 10 HOUR 7 RESULT: No apparent monoclonal protein on serum electrophoresis. Test Performed by: [address] [address] 8 FASTING 10 HOUR 9 Normal Range 180 to 914 Indeterminate Range 145 to 180 Deficient Range <145 10 FASTING 10 HOUR 11 Because ethnic data is not always readily available, this report includes an eGFR for both -Americans and non- Americans. The National Kidney Disease Education Program (NKDEP) does not endorse the use of the MDRD equation for patients that are not between the ages of 18 and 70, are , have extremes of body size, muscle mass, or nutritional status, or are non- or non-. According to the National Kidney Foundation, irrespective of diagnosis, the stage of the disease is based on the level of kidney function: Stage Description GFR(mL/min/1.73 m(2)) 1 Kidney damage with normal or decreased GFR 90 2 Kidney damage with mild decrease in GFR 60-89 3 Moderate decrease in GFR 30-59 4 Severe decrease in GFR 15-29 5 Kidney failure <15 (or dialysis) 12 Therapeutic concentration: <50 ug/mL Toxic concentration: >120 ug/mL 13 PT IS FASTING 14 Desirable <150 Borderline high 150-199 High 200-499 Very High >500 15 Desirable <200 Borderline high 200-239 High >239 16 Low <40 Desirable: 40-60 High: >60 17 Desirable: <100 mg/dL Near Optimal: 100-129 mg/dL Borderline High: 130-159 mg/dL High: 160-189 mg/dL Very High: >189 mg/dL 18 Because ethnic data is not always readily available, this report includes an eGFR for both -Americans and non- Americans. The National Kidney Disease Education Program (NKDEP) does not endorse the use of the MDRD equation for patients that are not between the ages of 18 and 70, are , have extremes of body size, muscle mass, or nutritional status, or are non- or non-. According to the National Kidney Foundation, irrespective of diagnosis, the stage of the disease is based on the level of kidney function: Stage Description GFR(mL/min/1.73 m(2)) 1 Kidney damage with normal or decreased GFR 90 2 Kidney damage with mild decrease in GFR 60-89 3 Moderate decrease in GFR 30-59 4 Severe decrease in GFR 15-29 5 Kidney failure <15 (or dialysis) 19 PT IS FASTING 20 SEE RESULT BELOW Name: LILIANE CONTRERAS : [address]: Deepali Nevarez MD Acct: [id number] Unit: [id number] AGE: 50 Location: [facility] Re04/02/15 SEX: F Status: REG REF SPEC: [id number] KVNG: 04/02/156653 SUBM DR: Deepali Nevarez MD REQ: [id number] RECD: 04/02/15 STATUS: COMP _ SOURCE: URINE SPDESC: ORDERED: Urine Culture Procedure Result Verified Site Urine Culture Final 04/04/15- 1345 ML Organism 1 NORMAL LUCIA [place] Count 10-25,000 (Moderate) CFU/ML * ML - MAIN LAB (PSC1) . END OF REPORT * ML=Testing performed at Main Lab DEPARTMENT OF PATHOLOGY, [address] [place] [address] Melvin Ferrari M.D. Director [facility] # [id number] 21 Because ethnic data is not always readily available, this report includes an eGFR for both -Americans and non- Americans. The National Kidney Disease Education Program (NKDEP) does not endorse the use of the MDRD equation for patients that are not between the ages of 18 and 70, are , have extremes of body size, muscle mass, or nutritional status, or are non- or non-. According to the National Kidney Foundation, irrespective of diagnosis, the stage of the disease is based on the level of kidney function: Stage Description GFR(mL/min/1.73 m(2)) 1 Kidney damage with normal or decreased GFR 90 2 Kidney damage with mild decrease in GFR 60-89 3 Moderate decrease in GFR 30-59 4 Severe decrease in GFR 15-29 5 Kidney failure <15 (or dialysis) 22 RUN DATE: 08/01/14 [facility] LAB LIVE PAGE 1 RUN TIME: 1013 [address] [facility], [place], [place] [address] Specimen Inquiry Name: LILIANE CONTRERAS : [address]: Deepali Nevarez MD Acct: [id number] Unit: [id number] AGE: 49 Location: [facility] Re07/30/14 SEX: F Status: REG REF SPEC: [id number] KVNG: 07/30/14-[address]: Deepali Nevarez MD REQ: [id number] RECD: 07/30/14 STATUS: COMP _ SOURCE: URINE SPDESC: ORDERED: Urine Culture QUERIES: Provider Requisition # [id number] Procedure Result Verified Site Urine Culture Final 08/01/14- 1013 ML Organism 1 NORMAL LUCIA [place] Count >100,000 (Many) CFU/ML END OF REPORT * ML=Testing performed at Main Lab DEPARTMENT OF PATHOLOGY, [address] [place] [address] Melvin Ferrari M.D. Director [facility] # [id number] 23 Because ethnic data is not always readily available, this report includes an eGFR for both -Americans and non- Americans. The National Kidney Disease Education Program (NKDEP) does not endorse the use of the MDRD equation for patients that are not between the ages of 18 and 70, are , have extremes of body size, muscle mass, or nutritional status, or are non- or non-. According to the National Kidney Foundation, irrespective of diagnosis, the stage of the disease is based on the level of kidney function: Stage Description GFR(mL/min/1.73 m(2)) 1 Kidney damage with normal or decreased GFR 90 2 Kidney damage with mild decrease in GFR 60-89 3 Moderate decrease in GFR 30-59 4 Severe decrease in GFR 15-29 5 Kidney failure <15 (or dialysis) 24 Desirable <150 Borderline high 150-199 High 200-499 Very High >500 25 Desirable <200 Borderline high 200-239 High >239 26 Low <40 Desirable: 40-60 High: >60 27 Desirable <100 Near Optimal 100-129 Borderline high 130-159 High 160-189 Very High >189 28 FASTING 12 HOUR 29 Desirable <150 Borderline high 150-199 High 200-499 Very High >500 30 Desirable <200 Borderline high 200-239 High >239 31 Low <40 Desirable: 40-60 High: >60 32 Desirable <100 Near Optimal 100-129 Borderline high 130-159 High 160-189 Very High >189 33 FASTING 12 HOUR 34 Because ethnic data is not always readily available, this report includes an eGFR for both -Americans and non- Americans. The National Kidney Disease Education Program (NKDEP) does not endorse the use of the MDRD equation for patients that are not between the ages of 18 and 70, are , have extremes of body size, muscle mass, or nutritional status, or are non- or non-. According to the National Kidney Foundation, irrespective of diagnosis, the stage of the disease is based on the level of kidney function: Stage Description GFR(mL/min/1.73 m(2)) 1 Kidney damage with normal or decreased GFR 90 2 Kidney damage with mild decrease in GFR 60-89 3 Moderate decrease in GFR 30-59 4 Severe decrease in GFR 15-29 5 Kidney failure <15 (or dialysis) Procedures Date CPT Code Description Status 12/28/2017 35092 Excise Breast Lesion Single,Identified By Pre-Op Completed Radiolog Marker 12/28/2017 Mammogram Completed 10/15/2017 Mammogram Completed 09/27/2017 Mammogram Completed 03/13/2017 Mammogram Completed 11/09/2015 Mammogram Completed 09/22/2015 38208 Polysomnography Sleep Staging 4+ Parameters W/Cpap Completed 05/14/2015 98426 Inhalation TX For Acute Airway Obstruction Completed W/Nebulizer/Inhaler 01/21/2015 52467 Sleep Study Unattended,HRT Rate,Oxygen Sat,Resp Completed Effort/Airflow 12/15/2014 81073 Polysomnography Sleep Staging 4+ Parameters Completed 11/05/2014 Mammogram Completed 10/04/2007 Colonoscopy Completed 12/11/2006 78733 ECHO/Stress Completed 12/11/2006 58014 ECHO/Stress Completed 12/11/2006 55917 Stress Test Completed Encounters Type Date Location Provider CPT E/M Dx Office Visit 12/18/2017 [facility] Internal Medicine Mayra Vigil M.D. 72939 G47.33 2:20p - [facility] Z12.11 E78.2 Z79.899 K21.9 Z23 D64.9 Z02.79 Office Visit 12/05/2017 11:00a [facility] [place] [address] D24.2 [facility] Office Visit 06/04/2017 12:10p [facility] Internal Medicine Mayra Vigil, 93891 J45.41 - Félix Drake D64.9 Office Visit 02/14/2017 1:40p [facility] Internal Medicine Mayra Vigil, 92982 J45.40 - Félix Drake D64.9 R09.02 Office Visit 01/02/2017 1:40p [facility] Internal Medicine Mayra Vigil, 48643 R09.02 - Félix Drake J45.41 D64.9 E66.9 Z11.4 Z12.31 Z91.19 Office Visit 06/27/2016 3:00p [facility] Pat Rosen, 31317 G47.33 Services Of [facility] KAMILLE RN, [facility]- R09.02 G47.14 J45.20 Office Visit 06/01/2016 2:40p [facility] [place] [address] L57.0 Office Visit 05/23/2016 2:20p [facility] Internal Medicine Arnaldo Maddox, 26592 Z79.899 - Félix Drake E55.9 Office Visit 01/08/2016 11:09a [facility] [place] [address] D64.9 Hospitalists F20.9 Office Visit 01/07/2016 11:09a [facility] Lynn Kline, 71691 D64.9 Assoc,pc [employer] Hospitalists F20.9 Office Visit 12/13/2015 9:15a [facility] [place] [address] G47.33 Services Of [facility] J45.20 Office Visit 09/02/2015 1:40p [facility] Internal Medicine Deepali Nevarez M.D. 31391 G47.33 - [place] J45.20 K59.00 Z12.31 M21.40 E78.89 Z82.49 Z83.49 Office Visit 08/20/2015 10:15a [facility] Pat Rosen, 79630 G47.33 Services Of [facility] KAMILLE RN, [facility] J45.40 Office Visit 05/19/2015 3:15p [facility] [place] [address] J45.40 Services Of [facility] G47.33 E66.09 Office Visit 05/14/2015 11:40a [facility] Internal Medicine Deepali Nevarez M.D. 61322 R06.00 - [place] J01.90 J45.901 Office Visit 04/23/2015 1:15p [facility] Pat Rosen, 74359 G47.33 Services Of [facility] MARYELLEN SIMENTAL, [facility] J45.20 Office Visit 04/02/2015 1:40p [facility] Internal Medicine Deepali Nevarez M.D. 77970 R30.0 - [place] J45.20 G47.00 G47.33 Office Visit 2015 10:15a [facility] [place] [address] 327.23 Services Of [facility] 780.52 493.10 278.00 Office Visit 02/09/2015 11:40a [facility] Internal Medicine Deepali Nevarez M.D. 84370 558.9 - [place] Office Visit 01/21/2015 1:40p [facility] Internal Medicine Deepali Nevarez M.D. 93973 780.79 - [place] 327.23 919.0 916.0 Office Visit 01/11/2015 1:15p [facility] [place] [address] 780.59 Services Of [facility] 780.52 493.10 278.00 Office Visit 12/31/2014 10:00a [facility] Internal Medicine Deepali Nevarez M.D. 16701 327.23 - [place] 780.79 780.52 278.00 Office Visit 11/09/2014 9:00a [facility] [place] [address] 493.10 Services Of [facility] 278.00 780.57 Office Visit 10/29/2014 3:40p [facility] Internal Medicine Deepali Nevarez M.D. 14710 466.0 - [place] 327.23 V76.19 780.79 Office Visit 10/15/2014 1:40p [facility] Internal Medicine Deepali Nevarez M.D. 86948 466.0 - [place] Office Visit 10/02/2014 1:40p [facility] Internal Medicine Deepali Nevarez M.D. 33401 780.79 - [place] Office Visit 09/22/2014 10:40a [facility] Internal Medicine Deepali Nevarez M.D. 85654 493.10 - [place] 386.10 473.0 786.07 Office Visit 08/19/2014 1:30p [facility] [place] [address] 461.8 [place] 386.10 719.46 Office Visit 07/30/2014 9:40a [facility] Internal Medicine Deepali Nevarez M.D. 86345 789.00 - [place] Office Visit 07/16/2014 9:40a [facility] Internal Medicine Deepali Nevarez M.D. 96960 272.8 - [place] Office Visit 07/07/2014 9:00a [facility] Internal Medicine Deepali Nevarez M.D. 08441 V70.0 - [place] V76.2 V76.19 272.2 309.0 278.00 V04.81 Office Visit 03/23/2014 10:00a [facility] Internal Medicine Johnny Miranda, [facility] 88209 079.99 - [place] 380.4 Office Visit 11/14/2013 11:20a [facility] Internal Medicine Deepali Nevarez M.D. 76294 789.09 - [place] 564.00 Office Visit 07/18/2013 4:20p [facility] Internal Medicine Deepali Nevarez M.D. 00591 564.00 - [place] Office Visit 07/10/2013 12:40p [facility] Internal Medicine Deepali Nevarez M.D. 00730 564.00 - [place] Office Visit 06/20/2013 9:00a [facility] Internal Medicine Deepali Nevarez M.D. 36579 564.00 - [place] 789.09 Plan of Care Future Appointment(s):02/14/2018 2:00 pm - Flora Arreola MD at [facility] Services Of [facility]02/07/2018 11:10 am - Mayra Vigil M.D. at [facility] Internal Medicine [facility]
[2018-01-20 10:04] VITALS: BP 116/74
--- NOTE | 2018-01-20 10:53 | UC ---
Skin Complaint HPI - HPI Summary HPI Summary: 52 yo female c/o L breast redness , "hot," x approx 1 week. 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 Reports that she has not yet followed up with her surgeon, but decided to get checked today because the redness has not resolved. No drainage either from nipple, incision site, redness. No fever / chills. No palpitations / dyspnea. No GI issues. No other areas of redness or discomfort reported. - History of Current Complaint Chief Complaint: UCSkin Time Seen by Provider: 01/20/18 10:02 Stated Complaint: CHEST PAIN Hx Obtained From: Patient Hx Last Menstrual Period: 12/22/17 ?: No Pain Intensity: 8 - Allergy/Home Medications Allergies/Adverse Reactions: Allergies Allergy/AdvReac Type Severity Reaction Status Date / Time Latex, Natural Rubber Allergy Unknown Verified 12/24/17 15:32 Reaction Details Penicillins Allergy Unknown Verified 12/24/17 15:32 Reaction Details Review of Systems Constitutional: Negative Skin: Other - see hpi Eyes: Negative ENT: Negative Respiratory: Negative Cardiovascular: Negative Gastrointestinal: Negative Genitourinary: Negative Motor: Negative Neurovascular: Negative Musculoskeletal: Negative Neurological: Negative Psychological: Negative Is Patient Immunocompromised?: No All Other Systems Reviewed And Are Negative: Yes PMH/Surg Hx/FS Hx/Imm Hx Previously Healthy: Yes - Surgical History Surgical History: Yes Surgery Procedure, Year, and Place: lumpectomy left breast - Family History Known Family History: Positive: None - Social History Alcohol Use: None Substance Use Type: None Smoking Status (MU): Never Smoked Tobacco Have You Smoked in the Last Year: No - Immunization History Most Recent Influenza Vaccination: Unknown Most Recent Tetanus Shot: Unknown Most Recent Pneumonia Vaccination: Unknown Physical Exam Triage Information Reviewed: Yes Appearance: Well-Appearing - NAD, Well-Nourished Vital Signs: Initial Vital Signs Temp 98.1 F 01/20/18 09:55 Pulse 80 01/20/18 09:55 Resp 16 01/20/18 09:55 BP 116/74 01/20/18 09:55 Pulse Ox 98 01/20/18 09:55 Vital Signs Reviewed: Yes Eye Exam: Normal ENT Exam: Normal - grossly normal Neck exam: Normal Respiratory Exam: Normal Respiratory: Positive: Chest non-tender, Lungs clear, Normal breath sounds, No respiratory distress, No accessory muscle use Cardiovascular Exam: Normal Cardiovascular: Positive: RRR, No Murmur, Pulses Normal, Brisk Capillary Refill Abdominal Exam: Normal Abdomen Description: Positive: Nontender Musculoskeletal Exam: Normal - moves x 4 ex'ts, gait steady. Neurological Exam: Normal - grossly nonfocal Psychological Exam: Normal - conversing easily and appropriately Skin Exam: Other - nondiaphoretic. L breast 20cmW x 9cmL redness, warmth to touch over ant breast, encompasses nipple. Surgical marker traced around redness site. Nonfluctuant. Warm to touch, blanching, no crepitus. L lat breast approx 7cm incision site at lumpectomy site, nonfluctuant, not draining, not erythematous. Axilla not red or swollen. Course/Dx - Course Course Of Treatment: Call placed to general surgery (Dr. Luong ecdis n navigation operator for Dr. Cloud). Message left with service, pt departed at 11:05, I have not yet spoken to gen surgery. Ms. Contreras will call tomorrow morning for appt, and will go to the ED if worse or new problems. Ms. Contreras is allergic to pcn, reaction hx unclear. As such, IM cephalosporin not given here. Start doxycycine. Advised to call Dr. Cloud's office tomorrow (Sunday) for follow up early this week for recheck. Rx Doxycycline. Questions as posed answered to the best of my ability. - Diagnoses Provider Diagnoses: Cellulitis L breast Discharge - Sign-Out/Discharge Documenting (check all that apply): Patient Departure - Discharge Plan Condition: Stable Disposition: HOME Prescriptions: DOXYcycline CAP(*) [DOXYcycline 100MG CAP(*)] 100 mg PO BID #20 cap Patient Education Materials: Cellulitis (ED) Referrals: Mayra Vigil MD [Primary Care Provider] - Brianne Cloud MD [Medical Doctor] - Additional Instructions: Call Dr. Cloud's office tomorrow morning to schedule follow up appointment for early this week. Meanwhile, please go to the Emergency Department for worse or new problems. Start antibiotics today. Consider daily probiotic. Drink plenty of fluids, avoid prolonged sun exposure while taking antibiotics. - Billing Disposition and Condition Condition: STABLE Disposition: Home
== END 2018-01-20 11:07 | disposition home or self-care (01) ==
LOC: UCEAST 09:50
DX: N61.0 Mastitis without abscess (principal); Z88.0 Allergy status to penicillin; Z91.040 Latex allergy status
CPT/HCPCS: 99212; G0463

== ENCOUNTER → 2018-08-28 18:47 | Emergency (ER) | payer OTHER ==
[~2018-08-28 18:47] MED LIST changes: -Buffered Lidocaine 0.9% SYRIN* 5 ML/SYR SYRINGE INTRADERM ONE; -Famotidine IV* 10 MG/ML 2 ML (20 mg) IV ONE; +Ketorolac INJ* 30 MG/ML 1 ML VIAL IM ONE
--- NOTE | 2018-08-28 19:15 | ED ---
Lower Extremity - HPI Summary HPI Summary: 53 year old female presents with right knee injury today. States that she fell onto the knee. States she lost her balance. fall was a mechanical fall. She denies any chest pain shortness breath. No dizziness. She denies any ankle pain. No other injury. She does not usually use a walker or cane. She denies any other injury. She has history of anxiety depression. - History of Current Complaint Stated Complaint: RIGHT KNEE PAIN PER EMS Time Seen by Provider: 08/28/18 19:04 Hx Last Menstrual Period: 12/22/17 - Allergies/Home Medications Allergies/Adverse Reactions: Allergies Allergy/AdvReac Type Severity Reaction Status Date / Time Latex, Natural Rubber Allergy Unknown Verified 03/22/18 15:32 Reaction Details Penicillins Allergy Unknown Verified 03/22/18 15:32 Reaction Details PMH/Surg Hx/FS Hx/Imm Hx Endocrine/Hematology History: Denies: Hx Diabetes, Hx Thyroid Disease Cardiovascular History: Denies: Hx Congestive Heart Failure, Hx Hypertension Respiratory History: Reports: Hx Asthma, Hx Sleep Apnea Denies: Hx Chronic Obstructive Pulmonary Disease (COPD) GI History: Reports: Hx Gastroesophageal Reflux Disease - ON MEDS Denies: Hx Ulcer History: Denies: Hx Renal Disease Sensory History: Reports: Hx Contacts or Glasses - READING Denies: Hx Hearing Aid Opthamlomology History: Reports: Hx Contacts or Glasses - READING Psychiatric History: Reports: Hx Anxiety, Hx Community Mental Health Tx, Hx Schizophrenia Denies: Hx Eating Disorder, Hx of Violent Episodes Against Others - Cancer History Hx Chemotherapy: No Hx Radiation Therapy: No - Surgical History Surgery Procedure, Year, and Place: lumpectomy left breast Hx Anesthesia Reactions: No Infectious Disease History: Denies: Hx Hepatitis, Hx Human Immunodeficiency Virus (HIV), History Other Infectious Disease - Family History Known Family History: Positive: None - Social History Alcohol Use: None Hx Substance Use: No Substance Use Type: Reports: None Hx Tobacco Use: No Smoking Status (MU): Never Smoked Tobacco Have You Smoked in the Last Year: No Review of Systems Negative: Fever Negative: Chest Pain Negative: Shortness Of Breath Positive: Myalgia - right knee pain All Other Systems Reviewed And Are Negative: Yes Physical Exam Triage Information Reviewed: Yes Vital Signs Reviewed: Yes Appearance: Positive: Well-Appearing Skin: Positive: Warm, Dry Head/Face: Positive: Normal Head/Face Inspection Eyes: Positive: Normal, Conjunctiva Clear ENT: Positive: Pharynx normal Respiratory/Lung Sounds: Positive: Clear to Auscultation, Breath Sounds Present Cardiovascular: Positive: Normal, RRR Musculoskeletal: Positive: Limited @ - right knee pain, Other - tenderness right patella, good pulses, nontender right ankle and hip Neurological: Positive: Normal Psychiatric: Positive: Normal Diagnostics - Laboratory Lab Statement: Any lab studies that have been ordered have been reviewed, and results considered in the medical decision making process. - Radiology knee Radiology Interpretation Completed By: ED Physician Summary of Radiographic Findings: no fracture Lower Extremity Course/Dx - Course Course Of Treatment: 53 year old female presents with right knee injury today. States that she fell onto the knee. States she lost her balance. fall was a mechanical fall. She denies any chest pain shortness breath. No dizziness. She denies any ankle pain. No other injury. She does not usually use a walker or cane. She denies any other injury. She has history of anxiety depression. on exam tenderness over right patella. neurovascular intact. Full range of motion of the knee with pain. xray shows no fracture. gave knee immbolizer and able to ambulate. will discharge to follow up with ortho if no improvement. told to practice rice. patient understand and agrees with plan. - Diagnoses Differential Diagnosis/HQI/PQRI: Positive: Contusion, Fracture (Closed), Sprain Provider Diagnoses: Right knee pain Discharge - Sign-Out/Discharge Documenting (check all that apply): Patient Departure Patient Received Moderate/Deep Sedation with Procedure: No - Discharge Plan Condition: Good Disposition: HOME Patient Education Materials: Knee Pain (ED) Referrals: Mayra Vigil MD [Primary Care Provider] - Jerry Tipton MD [Medical Doctor] - Additional Instructions: Use immobilizer as needed Stay off knee as much as possible Ice, elevate, Ibuprofen or Tylenol every 6 hours for pain Follow up with ortho if no improvement Return to ED if develop or any new or worsening symptoms - Billing Disposition and Condition Condition: GOOD Disposition: Home
[2018-08-28 20:18] VITALS: BP 105/90
== END | disposition home or self-care (01) ==
LOC: ED 18:47
DX: S89.91XA Unspecified injury of right lower leg, initial encounter (principal); M25.561 Pain in right knee; W19.XXXA Unspecified fall, initial encounter; Y92.9 Unspecified place or not applicable; Z88.0 Allergy status to penicillin
CPT/HCPCS: 96372; 99282; J1885

== ENCOUNTER 2019-08-02 17:27 | Emergency (ER) | payer OTHER ==
[2019-08-02 18:38] VITALS: BP 135/73
--- NOTE | 2019-08-02 18:58 | UC ---
Knee Pain HPI - HPI Summary HPI Summary: patient lives at 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 Hx From Patient Unobtainable Due To: Other - limited cognitive ability Hx Last Menstrual Period: 12/22/17 ?: No Onset/Duration: Gradual Onset, Lasting Weeks - 1, Still Present Location Of Injury: left knee Pain Intensity: 9 Pain Scale Used: 0-10 Numeric Character: Unable to Describe Aggravating Factor(s): Movement, Weight Bearing Associated Signs And Symptoms: Positive: Swelling - scab also noted on left knee that is unaccounted for Able to Bear Weight: Yes - Allergies/Home Medications Allergies/Adverse Reactions: Allergies Allergy/AdvReac Type Severity Reaction Status Date / Time Latex, Natural Rubber Allergy Unknown Verified 08/02/19 18:40 Reaction Details Penicillins Allergy Unknown Verified 08/02/19 18:40 Reaction Details PMH/Surg Hx/FS Hx/Imm Hx Previously Healthy: No - limited cognitive ability Endocrine History: Dyslipidemia Cardiovascular History: Hypertension Psychological History: Depression, Bipolar Disorder - Surgical History Surgical History: Yes Surgery Procedure, Year, and Place: lumpectomy left breast - Family History Known Family History: Positive: None - Social History 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 Alcohol Use: None Substance Use Type: None Smoking Status (MU): Never Smoked Tobacco Have You Smoked in the Last Year: No - Immunization History Most Recent Influenza Vaccination: Unknown Most Recent Tetanus Shot: Unknown Most Recent Pneumonia Vaccination: Unknown Review of Systems All Other Systems Reviewed And Are Negative: Yes Constitutional: Positive: Negative Skin: Positive: Other - scab left knee Eyes: Positive: Negative ENT: Positive: Negative Respiratory: Positive: Negative Cardiovascular: Positive: Negative Gastrointestinal: Positive: Negative Genitourinary: Positive: Negative Motor: Positive: Negative Neurovascular: Positive: Negative Musculoskeletal: Positive: Arthralgia - left knee, Edema - left knee Neurological: Positive: Negative Psychological: Positive: Negative Is Patient Immunocompromised?: No Physical Exam Triage Information Reviewed: Yes Appearance: Well-Appearing, No Pain Distress, Well-Nourished Vital Signs: Initial Vital Signs Temp 98.9 F 08/02/19 18:29 Pulse 100 08/02/19 18:29 Resp 20 08/02/19 18:29 BP 135/73 08/02/19 18:29 Pulse Ox 96 08/02/19 18:29 Vital Signs Reviewed: Yes Eye Exam: Normal Eyes: Positive: Conjunctiva Clear ENT Exam: Normal ENT: Positive: Normal ENT inspection, Hearing grossly normal. Negative: Trismus , Muffled voice, Hoarse voice Dental Exam: Normal Neck exam: Normal Neck: Positive: Supple, Nontender Respiratory Exam: Normal Respiratory: Positive: Chest non-tender, No respiratory distress, No accessory muscle use Cardiovascular Exam: Normal Cardiovascular: Positive: RRR, Pulses Normal, Brisk Capillary Refill Musculoskeletal: Positive: Edema @ Neurological Exam: Normal Neurological: Positive: Alert, Muscle Tone Normal Psychological Exam: Normal Psychological: Positive: Normal Response To Family Skin: Positive: Other - scab left knee Knee Pain Course/Dx - Course Course Of Treatment: use walker for ambulation, tylenol for pain niurka wrap for support and comfort follow with orthopedic md this week - Differential Dx/Diagnosis Provider Diagnosis: Injury of knee, left Discharge ED - Sign-Out/Discharge Documenting (check all that apply): Patient Departure All imaging exams completed and their final reports reviewed: No Studies - Discharge Plan Condition: Stable Disposition: HOME Patient Education Materials: Knee Pain (ED) Referrals: Timbo Hager MD [Medical Doctor] - 3 Days - Billing Disposition and Condition Condition: STABLE Disposition: Home
--- NOTE | 2019-08-03 08:20 | UC ---
- Progress Note Progress Note: Final radiologist reading of left knee x-ray from August 02, 2019 comes back as osteoarthritis and effusion. There is no interpretation on the chart by the provider however the patient was not diagnosed with the knee fracture therefore there is no discrepancy. Course/Dx - Diagnoses Provider Diagnoses: Injury of knee, left Discharge ED - Sign-Out/Discharge Documenting (check all that apply): Patient Departure All imaging exams completed and their final reports reviewed: Yes - Discharge Plan Condition: Stable Disposition: HOME Prescriptions: Ibuprofen TAB* [Motrin TAB* 400 MG] 400 mg PO Q6H PRN #30 tab PRN Reason: Pain - Mild Patient Education Materials: Knee Pain (ED) Referrals: Timbo Hager MD [Medical Doctor] - 3 Days - Billing Disposition and Condition Condition: STABLE Disposition: Home
== END 2019-08-02 20:22 | disposition home or self-care (01) ==
LOC: UCEAST 17:27
DX: S89.92XA Unspecified injury of left lower leg, initial encounter (principal); I10 Essential (primary) hypertension; F31.9 Bipolar disorder, unspecified; M17.12 Unilateral primary osteoarthritis, left knee; M25.462 Effusion, left knee; Z88.0 Allergy status to penicillin; Z91.040 Latex allergy status; X58.XXXA Exposure to other specified factors, initial encounter; Y92.9 Unspecified place or not applicable
CPT/HCPCS: 99212; G0463